=== PATIENT | male | born 1960 | race Caucasian/White ===

== ENCOUNTER 2019-05-27 13:47 | Emergency (ER) | payer MEDICARE ==
--- NOTE | 2019-05-27 14:27 | UC ---
Complaint Male HPI - HPI Summary HPI Summary: Pt is accompanied by sister. Sister and pt state that last week they thought he had a UTI and began PO cipro as prescribed by PCP. Pt has suprapubic catheter and uses motorized WC. PT traveled from [facility] and sister and pt state that he is "just not himself". Pt has taken 7 days of daily cipro with little improvement of symptoms. - History of Current Complaint Chief Complaint: UCGeneralIllness Stated Complaint: LETHARGIC, URINARY COMPLAINT Time Seen by Provider: 05/27/19 14:14 Hx Obtained From: Patient, Family/[employer] Onset/Duration: Sudden Onset, Lasting Days, Still Present Timing: Lasting Days Severity Initially: Mild Severity Currently: Mild Pain Intensity: 1 Location: None Associated Signs And Symptoms: Positive: Negative - Risk Factors Testicular Torsion: Negative - Allergies/Home Medications Allergies/Adverse Reactions: Allergies Allergy/AdvReac Type Severity Reaction Status Date / Time dapsone Allergy Anaphylatic Verified 05/27/19 14:02 Shock Home Medications: Home Medications Baclofen TAB* [Lioresal TAB*] 20 mg PO TID 05/27/19 [History Confirmed 05/27/19 ] Ciprofloxacin TAB* [Cipro 500 MG TAB*] 500 mg PO BID 05/27/19 [History Confirmed 05/27/19] Cranberry 500 mg PO DAILY 05/27/19 [History Confirmed 05/27/19] Diclofenac 1% GEL (NF) [Voltaren 1% GEL (NF)] 1 applic TOPICAL BID 05/27/19 [ History Confirmed 05/27/19] Fesoterodine (NF) [Toviaz (NF)] 8 mg PO DAILY 05/27/19 [History Confirmed ] Krill/Om-3/Dha/Epa/Phospho/Ast [Krill Oil 500 mg] 1 cap PO BID 05/27/19 [ History Confirmed 05/27/19] Labetalol TAB* [Trandate TAB*] 200 mg PO BID 05/27/19 [History Confirmed ] Lactobacillus Acidophilus [Freeze Dried Acidophilus] 1 cap PO DAILY 05/27/19 [ History Confirmed 05/27/19] Lidocaine PATCH 5%* [Lidoderm 5% Patch*] 1 patch TRANSDERM DAILY 05/27/19 [ History Confirmed 05/27/19] Lisinopril TAB* [Prinivil TAB*] 20 mg PO DAILY 05/27/19 [History Confirmed 05/27] Methylphenidate TAB* [Ritalin TAB*] 20 mg PO DAILY 05/27/19 [History Confirmed 05/27/19] Mirtazapine TAB* [Remeron TAB*] 30 mg PO BEDTIME 05/27/19 [History Confirmed ] Multivit-Mins No.11/Folic Acid [Dialyvite 5000 Tablet] 50,000 mg PO WEEKLY 05/27 [History Confirmed 05/27/19] Multivitamin [Multivitamins] 1 cap PO DAILY 05/27/19 [History Confirmed 05/27/19 ] Mycophenolate Mofetil TAB(*) [Cellcept TAB(*)] 1,000 mg PO DAILY 05/27/19 [ History Confirmed 05/27/19] Omeprazole 40 mg PO DAILY 05/27/19 [History Confirmed 05/27/19] Polyethylene Glycol 3350 BTL* [Miralax] 5 gm PO DAILY 05/27/19 [History Confirmed 05/27/19] Potassium Chlor TAB* [Klor Con ER TAB*] 10 meq PO DAILY 05/27/19 [History Confirmed 05/27/19] Pregabalin CAP(*) [Lyrica CAP(*)] 75 mg PO BID PRN 05/27/19 [History Confirmed 05/27/19] Pregabalin CAP(*) [Lyrica CAP(*)] 100 mg PO BID 05/27/19 [History Confirmed ] Senna TAB* [Senokot TAB*] 1 tab PO BID 05/27/19 [History Confirmed 05/27/19] Ubidecarenone [Coq-10 Tr] 100 mg PO DAILY 05/27/19 [History Confirmed 05/27/19] buPROPion HCl [Bupropion HCl ER] 150 mg PO BEDTIME 05/27/19 [History Confirmed 05/27/19] buPROPion HCl [Bupropion HCl ER] 300 mg PO DAILY 05/27/19 [History Confirmed ] celeCOXIB CAP* [CeleBREX CAP*] 100 mg PO BID 05/27/19 [History Confirmed ] hydrOXYzine HCL TAB* [Atarax 25 MG TAB*] 25 mg PO BEDTIME 05/27/19 [History Confirmed 05/27/19] traZODone TAB* [Desyrel TAB*] 50 mg PO BEDTIME 05/27/19 [History Confirmed 05/27] PMH/Surg Hx/FS Hx/Imm Hx - Additional Past Medical History Additional PMH: pt is parapalegic, uses motorized WC and has suprapubic catheter. Previously Healthy: Yes - Surgical History Surgical History: Yes Surgery Procedure, Year, and Place: neck fusion - Family History Known Family History: Positive: Cardiac Disease - Social History Occupation: Disabled Lives: Long Term Alcohol Use: None Substance Use Type: None Smoking Status (MU): Never Smoked Tobacco Have You Smoked in the Last Year: No - Immunization History Vaccination Up to Date: Yes Review of Systems All Other Systems Reviewed And Are Negative: Yes Constitutional: Positive: Fatigue Skin: Positive: Negative Eyes: Positive: Negative ENT: Positive: Negative Respiratory: Positive: Negative Cardiovascular: Positive: Negative Gastrointestinal: Positive: Negative Genitourinary: Positive: Negative Motor: Positive: Negative Neurovascular: Positive: Negative Musculoskeletal: Positive: Negative Neurological: Positive: Negative Psychological: Positive: Negative Is Patient Immunocompromised?: No Physical Exam Triage Information Reviewed: Yes Appearance: Well-Appearing Vital Signs: Initial Vital Signs Temp 98.3 F 05/27/19 14:03 Pulse 84 05/27/19 14:03 Resp 19 05/27/19 14:03 BP 128/73 05/27/19 14:03 Pulse Ox 95 05/27/19 14:03 Vital Signs Reviewed: Yes Eye Exam: Normal ENT Exam: Normal Dental Exam: Normal Neck exam: Normal Respiratory: Positive: Normal breath sounds, No respiratory distress Cardiovascular Exam: Normal Musculoskeletal Exam: Other - parapalegic Neurological Exam: Other - parapalegic Psychological Exam: Normal Skin Exam: Normal Complaint Male Course/Dx - Differential Dx/Diagnosis Differential Diagnosis/HQI/PQRI: Urinary Tract Infection, Other - sepsis Provider Diagnosis: Fatigue Discharge - Sign-Out/Discharge Documenting (check all that apply): Patient Departure All imaging exams completed and their final reports reviewed: No Studies - Discharge Plan Condition: Stable Disposition: HOME Patient Education Materials: Fatigue (ED) Referrals: [facility] REFERRAL [Outside] - If Needed No Primary Care Phys,NOPCP [Primary Care Provider] - Additional Instructions: It is recommended that you go directly to the closest emergency room for further evaluation and testing. - Billing Disposition and Condition Condition: STABLE Disposition: Home
[2019-05-27 14:29] VITALS: BP 128/73
--- NOTE | 2019-05-29 09:00 | UC ---
- Progress Note Progress Note: Urine + for MRSA. He was sent to the ER for evaluation. Please call to check status--he likely received treatment in the ED. If he has not been treated and still has symptoms he could be treated with bactrim or nitrofurantoin. It is possible that he is colonized with MRSA and this is a chronic finding, in which case antibiotics do not need to be used. Course/Dx - Diagnoses Provider Diagnoses: Fatigue Discharge - Sign-Out/Discharge Documenting (check all that apply): Patient Departure All imaging exams completed and their final reports reviewed: No Studies - Discharge Plan Condition: Stable Disposition: HOME Patient Education Materials: Fatigue (ED) Referrals: [facility] REFERR[facility] [Outside] - If Needed No Primary Care Phys,NOPCP [Primary Care Provider] - Additional Instructions: It is recommended that you go directly to the closest emergency room for further evaluation and testing. - Billing Disposition and Condition Condition: STABLE Disposition: Home
== END 2019-05-27 14:46 | disposition home or self-care (01) ==
LOC: UCCORT 13:47
DX: R53.83 Other fatigue (principal); N39.0 Urinary tract infection, site not specified; A49.02 Methicillin resistant Staphylococcus aureus infection, unspecified site; Z99.3 Dependence on wheelchair; Z88.1 Allergy status to other antibiotic agents; G82.20 Paraplegia, unspecified
CPT/HCPCS: 81003; 87077; 87086; 87186; 99202; G0463